=== PATIENT | female | born 1990 ===

== ENCOUNTER 2022-01-25 12:00 | Inpatient (IN) | payer OTHER ==
[~2022-01-25] VITALS: Ht 167.6 cm; Wt 4.5 kg
[2022-02-12] MEDS ORDERED: PRENATAL TABLE1 EAC1 PO (16:06)
== END 2022-02-16 15:32 | disposition home or self-care (01) | DRG 788 ==
LOC: OB/GYN 02-02 12:00 → LDR 02-12 14:17 → O/R 02-13 15:58 → SURG-SUITE 02-13 16:54
PROVIDERS: ADMIT Obstetrics & Gynecology; ATTEND Obstetrics & Gynecology
PROC: 4A1HXCZ Monitoring of Products of Conception, Cardiac Rate, External Approach (ICD-10-PCS; 2022-02-12)
PROC: 10D00Z1 Extraction of Products of Conception, Low, Open Approach (ICD-10-PCS; principal; 2022-02-13 14:15)
DX: O36.63X0 Maternal care for excessive fetal growth, third trimester, not applicable or unspecified (principal); Z3A.40 40 weeks gestation of pregnancy; Z37.0 Single live birth; Z20.822 Contact with and (suspected) exposure to COVID-19

== ENCOUNTER 2022-02-08 09:54 | Outpatient (CLI) | payer OTHER | END 2022-02-08 10:32 | disposition home or self-care (01) | LOC: NST 09:54 | PROVIDERS: ATTEND Obstetrics & Gynecology | DX: Z34.83 Encounter for supervision of other normal pregnancy, third trimester (principal) ==